=== PATIENT | male | born 1965 | race Caucasian/White ===

== ENCOUNTER 2018-03-26 10:23 | Inpatient (IN) | payer BC ==
[~2018-03-26] VITALS: Ht 180.3 cm; Wt 71.7 kg
[2018-03-26] MEDS ORDERED: IV NORMAL SALINE 1000ML BAG 1,000 ML IV ONE (11:00)
--- NOTE | 2018-03-26 11:07 | PHYS DOC ---
Past Medical History Past Medical History: No Pertinent History Past Surgical History: Other Additional Past Surgical Histo: EYE-R Alcohol Use: None Drug Use: None Adult General Chief Complaint Chief Complaint: ABDOMINAL PAIN HPI HPI Patient is a 53 year old male who presents with 6 out of 10 right upper quadrant abdominal pain. Patient stated this pain has been waxing and waning for the last 2 weeks. He states he thought he was constipated and took over-the- counter remedies. He states his been having small amount of bowel movements intermittently for the last 2 weeks. Patient denies any nausea vomiting. He states his pain is worse when he takes a deep breath. Patient also states he had one episode of vomiting a week ago. Review of Systems Review of Systems Constitutional: Denies fever or chills [] Eyes: Denies change in visual acuity, redness, or eye pain [] HENT: Denies nasal congestion or sore throat [] Respiratory: Denies cough or shortness of breath [] Cardiovascular: No additional information not addressed in HPI [] GI: Reports right upper quadrant abdominal pain, constipation, reports 1 episode of vomiting, denies nausea, bloody stools or diarrhea [] : Denies dysuria or hematuria [] Musculoskeletal: Denies back pain or joint pain [] Integument: Denies rash or skin lesions [] Neurologic: Denies headache, focal weakness or sensory changes [] All other systems were reviewed and found to be within normal limits, except as documented in this note. Current Medications Current Medications Current Medications Medications (Trade) Dose Ordered Sig/Ahrvey Start Time Stop Time Status Last Admin Dose Admin Info (CONTRAST GIVEN -- Rx MONITORING) 1 each PRN DAILY PRN 03/26/18 11:30 03/28/18 11:29 Iohexol (Omnipaque 300 Mg/ml) 75 ml 1X ONCE 03/26/18 11:30 03/26/18 11:31 DC 03/26/18 11:40 75 ML Sodium Chloride 1,000 ml @ 1,000 mls/hr 1X ONCE 03/26/18 11:00 03/26/18 11:59 DC 03/26/18 13:51 1,000 MLS/HR Allergies Allergies Allergies Coded Allergies Type Severity Reaction Last Updated Verified No Known Drug Allergies 03/26/18 No Physical Exam Physical Exam Constitutional: Well developed, well nourished, no acute distress, non-toxic appearance. [] HENT: Normocephalic, atraumatic, bilateral external ears normal, oropharynx moist, no oral exudates, nose normal. [] Eyes: PERRLA, EOMI, conjunctiva normal, no discharge. [] Neck: Normal range of motion, no tenderness, supple, no stridor. [] Cardiovascular:Heart rate regular rhythm, no murmur [] Lungs & Thorax: Bilateral breath sounds clear to auscultation [] Abdomen: Bowel sounds normal, soft, no tenderness, no masses, no pulsatile masses. [] Skin: Warm, dry, no erythema, no rash. [] Back: No tenderness, no CVA tenderness. [] Extremities: No tenderness, no cyanosis, no clubbing, ROM intact, no edema. [] Neurologic: Alert and oriented X 3, normal motor function, normal sensory function, no focal deficits noted. [] Psychologic: Affect normal, judgement normal, mood normal. [] Current Patient Data Vital Signs Vital Signs Date Time Temp Pulse Resp B/P (MAP) Pulse Ox O2 Delivery O2 Flow Rate FiO2 03/26/18 12:00 77 16 168/84 (112) 97 Room Air 03/26/18 10:45 97.9 97.9 Lab Values Laboratory Tests Test 03/26/18 11:05 White Blood Count 6.9 x10^3/uL (4.0-11.0) Red Blood Count 4.90 x10^6/uL (4.30-5.70) Hemoglobin 14.2 g/dL (13.0-17.5) Hematocrit 41.2 % (39.0-53.0) Mean Corpuscular Volume 84 fL (79-100) Mean Corpuscular Hemoglobin 29 pg (25-35) Mean Corpuscular Hemoglobin Concent 34 g/dL (31-37) Red Cell Distribution Width 13.2 % (11.5-14.5) Platelet Count 271 x10^3/uL (140-400) Neutrophils (%) (Auto) 70 % (31-73) Lymphocytes (%) (Auto) 19 % (24-48) L Monocytes (%) (Auto) 8 % (0-9) Eosinophils (%) (Auto) 2 % (0-3) Basophils (%) (Auto) 1 % (0-3) Neutrophils # (Auto) 4.8 x10^3uL (1.8-7.7) Lymphocytes # (Auto) 1.3 x10^3/uL (1.0-4.8) Monocytes # (Auto) 0.6 x10^3/uL (0.0-1.1) Eosinophils # (Auto) 0.2 x10^3/uL (0.0-0.7) Basophils # (Auto) 0.1 x10^3/uL (0.0-0.2) Urine Collection Type Unknown Urine Color Yellow Urine Clarity Clear Urine pH 6.5 Urine Specific [place] 1.025 Urine Protein Negative mg/dL (NEG-TRACE) Urine Glucose (UA) Negative mg/dL (NEG) Urine Ketones (Stick) Negative mg/dL (NEG) Urine Blood Negative (NEG) Urine Nitrite Negative (NEG) Urine Bilirubin Negative (NEG) Urine Urobilinogen Dipstick 0.2 mg/dL (0.2 mg/dL) Urine Leukocyte Esterase Negative (NEG) Urine RBC 0 /HPF (0-2) Urine WBC Occ /HPF (0-4) Urine Squamous Epithelial Cells Few /LPF Urine Bacteria 0 /HPF (0-FEW) Sodium Level 140 mmol/L (136-145) Potassium Level 4.0 mmol/L (3.5-5.1) Chloride Level 101 mmol/L (98-107) Carbon Dioxide Level 32 mmol/L (21-32) Anion Gap 7 (6-14) Blood Urea Nitrogen 20 mg/dL (8-26) Creatinine 0.9 mg/dL (0.7-1.3) Estimated GFR (Cockcroft-Gault) 87.6 BUN/Creatinine Ratio 22 (6-20) H Glucose Level 83 mg/dL (70-99) Calcium Level 9.4 mg/dL (8.5-10.1) Total Bilirubin 0.7 mg/dL (0.2-1.0) Aspartate Amino Transferase (AST) 38 U/L (15-37) H Alanine Aminotransferase (ALT) 44 U/L (16-63) Alkaline Phosphatase 161 U/L (46-116) H Total Protein 7.8 g/dL (6.4-8.2) Albumin 3.7 g/dL (3.4-5.0) Albumin/Globulin Ratio 0.9 (1.0-1.7) L Lipase 97 U/L (73-393) Laboratory Tests 03/26/18 11:05 Laboratory Tests 03/26/18 11:05 EKG EKG [] Radiology/Procedures Radiology/Procedures []PROCEDURE: CT ABD PELV W/ IV CONTRST ONLY Examination: CT ABD PELV W/ IV CONTRST ONLY History: LOW RIGHT ABDOMEN PAIN, CONSTIPATION. IV OMNI 300 75 MLS. NO PREVIOUS Comparison/Correlation: None Findings: Axial images of the abdomen and pelvis were obtained following 75 cc Omnipaque 300. Coronal and sagittal reformatted images were provided. Calcified granulomas are present involving the right lung base. Minimal costophrenic sulcus atelectasis bilaterally is present. At the hepatic dome, there is extensive low-attenuation mass involvement. The dominant mass at this site measures 10.2 cm x 7.8 cm. The next largest lesion is present at the inferior aspect of the right hepatic lobe measuring 6.5 cm x 5 cm. Multiple smaller masses also present involving the liver especially in the right hepatic lobe and to a lesser extent in the left hepatic lobe. Some of the low attenuation lesions present have a density as would be expected of a cyst. Right mid abdominal cystic structure measuring 2.4 cm x 1.9 cm is present with Hounsfield units of 25. Spleen has calcified granulomas. Adrenal glands are normal. Pancreas is unremarkable. Kidneys are normal. Large quantity of stool is present within the colon. Small umbilical hernia containing frontal fat. No inflammatory changes identified about the cecum. Minimal perihepatic ascites. No enlarged abdominal or pelvic lymph nodes. Urinary bladder is unremarkable. Bilateral pars interarticularis fractures are present. Less than grade 1 anterolisthesis of L5 in relation S1 is present with severe disc space narrowing and spurring anteriorly. Exaggerated lordosis of the lumbar spine is evident. Impression: Significant hepatic mass involvement. Findings are of concern for metastatic disease. Correlate for possibility of infectious etiology alternatively. No findings of cirrhosis or other findings to suggest primary liver neoplastic process. Large quantity of stool within the colon. Cystic structure within the right mid abdomen is present and small in size. This may represent a mesenteric cyst. It is of indeterminate etiology. L5 pars interarticularis fracture bilaterally. Electronically signed by: Shayan Weaver MD (03/26/2018 1:26 PM) [id number] DICTATED and SIGNED BY: SHAYAN WEAVER MD DATE: 03/26/18 1221 Course & Med Decision Making Course & Med Decision Making Pertinent Labs and Imaging studies reviewed. (See chart for details) This is a 53-year-old male patient presenting to the ED today with complaints of right upper quadrant abdominal pain. Is also complaining of constipation. Symptoms have been going on and off for 2 weeks. CBC with a normal WBC, CMP with AST of 38. CT of the abdomen and pelvic was noted for significant hepatic mass. Findings are of concern for metastatic disease. Correlate for possibility of infectious etiology alternatively. No findings of cirrhosis or other findings to suggest primary liver neoplastic process. Large quantity of stool within the colon.Cystic structure within the right mid abdomen is present and small in size. This may represent a mesenteric cyst. It is of indeterminate etiology. L5 pars interarticularis fracture bilaterally. 14:[address] Williamson who accepted patient for admission 14:22 :Consulted with Lilliam GAMBOA who will f/u with patient Routine consult placed for neurosurgery for L5 pars interarticularis fracture bilaterally. Dragon Disclaimer Dragon Disclaimer This electronic medical record was generated, in whole or in part, using a voice recognition dictation system. Departure Departure Impression: Primary Impression: Liver mass Additional Impressions: Constipation Fracture of L5 vertebra Disposition: 09 ADMITTED INPATIENT Condition: STABLE Referrals: ZANE PRIDE MD (PCP) Problem Qualifiers Additional Impressions: Constipation Constipation type: unspecified constipation type Qualified Codes: K59.00 - Constipation, unspecified Fracture of L5 vertebra Encounter type: initial encounter Fracture type: closed Fracture morphology : unspecified fracture morphology Qualified Codes: S32.059A - Unspecified fracture of fifth lumbar vertebra, initial encounter for closed fracture CHIKI ARZOLA APRN Mar 26, 2018 11:07
[2018-03-26 11:16] LABS: BASO # 0.1 x10^3/uL (0.0-0.2); BASO % 1 % (0-3); EOS # 0.2 x10^3/uL (0.0-0.7); EOS % 2 % (0-3); HEMATOCRIT 41.2 % (39.0-53.0); HEMOGLOBIN 14.2 g/dL (13.0-17.5); LYMPH # 1.3 x10^3/uL (1.0-4.8); LYMPH % 19 % (24-48); MEAN CORPUSCULAR HEMOGLOBIN 29 pg (25-35); MEAN CORPUSCULAR HGB CONC 34 g/dL (31-37); MEAN CORPUSCULAR VOLUME 84 fL (79-100); MONO # 0.6 x10^3/uL (0.0-1.1); MONO % 8 % (0-9); NEUT # 4.8 x10^3uL (1.8-7.7); NEUT % 70 % (31-73); PLATELET COUNT 271 x10^3/uL (140-400); RED CELL DISTRIBUTION WIDTH 13.2 % (11.5-14.5); WHITE BLOOD COUNT 6.9 x10^3/uL (4.0-11.0)
[2018-03-26 11:17] LABS: BILIRUBIN,URINE NEGATIVE (NEG); CLARITY,URINE CLEAR; COLOR,URINE YELLOW; NITRITE,URINE NEGATIVE (NEG); PH,URINE 6.5; PROTEIN,URINE NEGATIVE (NEG-TRACE); UROBILINOGEN,URINE 0.2 mg/dL (0.2 mg/dL)
[2018-03-26 11:22] LABS: CALCIUM 9.4 mg/dL (8.5-10.1); CREATININE 0.9 mg/dL (0.7-1.3); GFR 87.6
[2018-03-26 11:24] LABS: SQUAMOUS EPITHELIAL CELL,UR FEW /LPF
[2018-03-26 11:28] LABS: ALBUMIN 3.7 g/dL (3.4-5.0); ALBUMIN/GLOBULIN RATIO 0.9 (1.0-1.7); BACTERIA,URINE 0 /HPF (0-FEW); RBC,URINE 0 /HPF (0-2); TOTAL BILIRUBIN 0.7 mg/dL (0.2-1.0); TOTAL PROTEIN 7.8 g/dL (6.4-8.2); WBC,URINE OCC /HPF (0-4)
[2018-03-26] MEDS ORDERED: IOHEXOL 300 MG/ML 100ML VIAL. IV ONE (11:30)
[2018-03-26] MEDS ORDERED: CONTRAST GIVEN. MC PRN (11:30)
--- NOTE | 2018-03-26 13:29 | RAD ---
Examination: CT ABD PELV W/ IV CONTRST ONLY History: LOW RIGHT ABDOMEN PAIN, CONSTIPATION. IV OMNI 300 75 MLS. NO PREVIOUS Comparison/Correlation: None Findings: Axial images of the abdomen and pelvis were obtained following 75 cc Omnipaque 300. Coronal and sagittal reformatted images were provided. Calcified granulomas are present involving the right lung base. Minimal costophrenic sulcus atelectasis bilaterally is present. At the hepatic dome, there is extensive low-attenuation mass involvement. The dominant mass at this site measures 10.2 cm x 7.8 cm. The next largest lesion is present at the inferior aspect of the right hepatic lobe measuring 6.5 cm x 5 cm. Multiple smaller masses also present involving the liver especially in the right hepatic lobe and to a lesser extent in the left hepatic lobe. Some of the low attenuation lesions present have a density as would be expected of a cyst. Right mid abdominal cystic structure measuring 2.4 cm x 1.9 cm is present with Hounsfield units of 25. Spleen has calcified granulomas. Adrenal glands are normal. Pancreas is unremarkable. Kidneys are normal. Large quantity of stool is present within the colon. Small umbilical hernia containing frontal fat. No inflammatory changes identified about the cecum. Minimal perihepatic ascites. No enlarged abdominal or pelvic lymph nodes. Urinary bladder is unremarkable. Bilateral pars interarticularis fractures are present. Less than grade 1 anterolisthesis of L5 in relation S1 is present with severe disc space narrowing and spurring anteriorly. Exaggerated lordosis of the lumbar spine is evident. Impression: Significant hepatic mass involvement. Findings are of concern for metastatic disease. Correlate for possibility of infectious etiology alternatively. No findings of cirrhosis or other findings to suggest primary liver neoplastic process. Large quantity of stool within the colon. Cystic structure within the right mid abdomen is present and small in size. This may represent a mesenteric cyst. It is of indeterminate etiology. L5 pars interarticularis fracture bilaterally. Electronically signed by: Shayan Gerber MD (03/26/2018 1:26 PM) [id number]
[2018-03-26] MEDS ORDERED: ONDANSETRON PF 4 MG/2 ML VIAL. IV PRN (15:15)
[2018-03-26] MEDS ORDERED: MORPHINE SULFATE 4 MG/ML VIAL. IV PRN (15:15)
[2018-03-26 15:20] VITALS: BP 114/87
--- NOTE | 2018-03-26 15:28 | PDOC2 ---
GI CONSULT Reason For Consult: Liver mass HPI: HPI: 53 y/o male seen in ER. On 03/10/18, awoke and vomited once, then noted some right-sided pain above and under ribs. Was bothersome for a couple days, then improved although it "always felt like something was there." Recurred/worsened on 03/24 - dull aching. Went to work (at [employer]) yesterday, noted pain was worse w/ deep breathing and bending/stooping. Then last night had to sleep sitting up because discomfort was too intense when laying on right side. Came to ER for this and constipation. Seems has a long h/o constipation (hard stools , straining) that has been worse since pain began - last stool (hard and small) was yesterday. CT unfortunately showed significant hepatic mass involvement concerning for metastatic disease. Also noted large quantity of stool without in the colon. No n/v (except for one instance of vomiting as mentioned above). Appetite has been good, but has lost weight since 10/2017 - Ashley says she's trying to lose weight and has changed her diet, so he eats more healthy foods as a result , but also snacks and eats lots of sweets. No reflux/heartburn or dysphagia. Typically no issues w/ abd pain. No diarrhea, hematemesis, or melena. For years, has noted red blood swirling around stool in toilet, probably occurs once weekly. No previous EGD or colonoscopy. No GB, liver, or pancreas history he's aware of. Last physical was about 9 years ago. Takes as ASA occasionally and a multi-vitamin. No h/o hepatitis (or risk factors for this). PMH: PMH: ?HLD, right cataract removal FH: Family History: Other (parents killed in MVA when he was 11) Social History: Smoke: No ALCOHOL: none Drugs: None ROS: GEN: Denies fevers, chills, sweats HEENT: Denies blurred vision, sore throat CV: Denies chest pain RESP: Denies shortness of air, cough GI: Per HPI : Denies hematuria, dysuria ENDO: +weight loss NEURO: Denies confusion, dizziness MSK: Denies weakness, joint pain/swelling SKIN: Denies jaundice, pruritus Vitals: Vitals: Vital Signs Date Time Temp Pulse Resp B/P (MAP) Pulse Ox O2 Delivery O2 Flow Rate FiO2 03/26/18 15:07 72 16 170/90 (116) 97 Room Air 03/26/18 10:45 97.9 97.9 Labs: Labs: Laboratory Tests Test 03/26/18 11:05 White Blood Count 6.9 x10^3/uL (4.0-11.0) Red Blood Count 4.90 x10^6/uL (4.30-5.70) Hemoglobin 14.2 g/dL (13.0-17.5) Hematocrit 41.2 % (39.0-53.0) Mean Corpuscular Volume 84 fL (79-100) Mean Corpuscular Hemoglobin 29 pg (25-35) Mean Corpuscular Hemoglobin Concent 34 g/dL (31-37) Red Cell Distribution Width 13.2 % (11.5-14.5) Platelet Count 271 x10^3/uL (140-400) Neutrophils (%) (Auto) 70 % (31-73) Lymphocytes (%) (Auto) 19 % (24-48) Monocytes (%) (Auto) 8 % (0-9) Eosinophils (%) (Auto) 2 % (0-3) Basophils (%) (Auto) 1 % (0-3) Neutrophils # (Auto) 4.8 x10^3uL (1.8-7.7) Lymphocytes # (Auto) 1.3 x10^3/uL (1.0-4.8) Monocytes # (Auto) 0.6 x10^3/uL (0.0-1.1) Eosinophils # (Auto) 0.2 x10^3/uL (0.0-0.7) Basophils # (Auto) 0.1 x10^3/uL (0.0-0.2) Urine Collection Type Unknown Urine Color Yellow Urine Clarity Clear Urine pH 6.5 Urine Specific [place] 1.025 Urine Protein Negative mg/dL (NEG-TRACE) Urine Glucose (UA) Negative mg/dL (NEG) Urine Ketones (Stick) Negative mg/dL (NEG) Urine Blood Negative (NEG) Urine Nitrite Negative (NEG) Urine Bilirubin Negative (NEG) Urine Urobilinogen Dipstick 0.2 mg/dL (0.2 mg/dL) Urine Leukocyte Esterase Negative (NEG) Urine RBC 0 /HPF (0-2) Urine WBC Occ /HPF (0-4) Urine Squamous Epithelial Cells Few /LPF Urine Bacteria 0 /HPF (0-FEW) Sodium Level 140 mmol/L (136-145) Potassium Level 4.0 mmol/L (3.5-5.1) Chloride Level 101 mmol/L (98-107) Carbon Dioxide Level 32 mmol/L (21-32) Anion Gap 7 (6-14) Blood Urea Nitrogen 20 mg/dL (8-26) Creatinine 0.9 mg/dL (0.7-1.3) Estimated GFR (Cockcroft-Gault) 87.6 BUN/Creatinine Ratio 22 (6-20) Glucose Level 83 mg/dL (70-99) Calcium Level 9.4 mg/dL (8.5-10.1) Total Bilirubin 0.7 mg/dL (0.2-1.0) Aspartate Amino Transf (AST/SGOT) 38 U/L (15-37) Alanine Aminotransferase (ALT/SGPT) 44 U/L (16-63) Alkaline Phosphatase 161 U/L (46-116) Total Protein 7.8 g/dL (6.4-8.2) Albumin 3.7 g/dL (3.4-5.0) Albumin/Globulin Ratio 0.9 (1.0-1.7) Lipase 97 U/L (73-393) Allergies: Coded Allergies: No Known Drug Allergies (Unverified , 03/26/18) Medications: Current Medications Medications (Trade) Dose Ordered Sig/Harvey Route PRN Reason Start Time Stop Time Status Last Admin Dose Admin Sodium Chloride 1,000 ml @ 1,000 mls/hr 1X ONCE IV 03/26/18 11:00 03/26/18 11:59 DC 03/26/18 13:51 Iohexol (Omnipaque 300 Mg/ml) 75 ml 1X ONCE IV 03/26/18 11:30 03/26/18 11:31 DC 03/26/18 11:40 Imaging: Imaging: CT A/P w/ IV contrast Impression: Significant hepatic mass involvement. Findings are of concern for metastatic disease. Correlate for possibility of infectious etiology alternatively. No findings of cirrhosis or other findings to suggest primary liver neoplastic process. Large quantity of stool within the colon. Cystic structure within the right mid abdomen is present and small in size. This may represent a mesenteric cyst. It is of indeterminate etiology. L5 pars interarticularis fracture bilaterally. PE: GEN: NAD HEENT: Atraumatic, PERRL LUNGS: CTAB HEART: RRR ABD: firmness RUQ, some discomfort over right ribs, BS+ EXTREMITY: No edema SKIN: No rashes, no jaundice NEURO/PSYCH: A & O 3 A/P: A/P: RUQ discomfort Chronic constipation - worse x [address] - hepatic mass Weight loss Blood in stools - for years CRC screen - none -- Concern for malignancy. Will ask for liver biopsy w/ IR. Try Dulcolax/Miralax for constipation. Okay to eat per GI. MATT HOOVER Mar 26, 2018 15:28
[2018-03-26] MEDS ORDERED: BISACODYL 5 MG TABLET.DR. PO ONE (16:00)
[2018-03-26 16:12] LABS: PROTHROMBIN TIME PATIENT 13.9 SEC (11.7-14.0)
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
[2018-03-26] MEDS ORDERED: DOCUSATE SODIUM 100 MG CAPSULE. PO PRN (16:45)
[2018-03-26] MEDS: DOCUSATE SODIUM 100 MG CAPSULE. PO SCH ×2 (16:51→22:45)
[2018-03-26 19:00] VITALS: BP 123/74
[2018-03-26] MEDS: POLYETHYLENE GLYCOL 3350 17 GM PACKET. PO SCH (22:45)
[2018-03-26 23:00] VITALS: BP 123/75
[2018-03-27] VITALS (14 sets, daily range): BP systolic 109–137; BP diastolic 58–87
[2018-03-27 03:13] LABS: BASO # 0.1 x10^3/uL (0.0-0.2); BASO % 1 % (0-3); EOS # 0.3 x10^3/uL (0.0-0.7); EOS % 4 % (0-3); HEMATOCRIT 39.5 % (39.0-53.0); HEMOGLOBIN 13.5 g/dL (13.0-17.5); LYMPH # 1.5 x10^3/uL (1.0-4.8); LYMPH % 23 % (24-48); MEAN CORPUSCULAR HEMOGLOBIN 29 pg (25-35); MEAN CORPUSCULAR HGB CONC 34 g/dL (31-37); MEAN CORPUSCULAR VOLUME 84 fL (79-100); MONO # 0.8 x10^3/uL (0.0-1.1); MONO % 12 % (0-9); NEUT # 3.9 x10^3uL (1.8-7.7); NEUT % 60 % (31-73); PLATELET COUNT 249 x10^3/uL (140-400); RED BLOOD COUNT 4.68 x10^6/uL (4.30-5.70); RED CELL DISTRIBUTION WIDTH 13.1 % (11.5-14.5); WHITE BLOOD COUNT 6.5 x10^3/uL (4.0-11.0)
[2018-03-27 03:33] LABS: CALCIUM 8.4 mg/dL (8.5-10.1); CREATININE 0.9 mg/dL (0.7-1.3); GFR 87.6; POTASSIUM 4.2 mmol/L (3.5-5.1)
--- NOTE | 2018-03-27 08:07 | RAD ---
Right upper quadrant abdominal ultrasound, 03/26/2018: HISTORY: Abnormal liver on CT The gallbladder is not well distended. It is folded over upon itself. Its jane are mildly thickened. There are several nodular foci along its jane without posterior acoustic shadowing. The appearance suggests gallbladder polyps. The common hepatic duct is of normal caliber. The liver is abnormal. There is a large heterogeneous solid mass in the right lobe demonstrating mixed hyperechoic and mildly hypoechoic components. This process measures at least 11-12 cm in diameter. A neoplastic etiology is likely. There are multiple small smooth cysts in both lobes. The pancreas is unremarkable. The visualized portions of the right kidney show no abnormality. IMPRESSION: 1. Large heterogeneous solid mass in the right lobe of the liver suggesting a primary hepatic neoplasm versus metastatic disease. 2. Multiple additional small scattered hepatic lesion seen on the CT study are predominantly cysts. Coexisting small metastases cannot be excluded. 3. Poorly distended gallbladder demonstrating mild mural thickening and probable small polyps. Electronically signed by: Joesph Madrigal MD (03/27/2018 8:03 AM) [facility]
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
[2018-03-27] MEDS ORDERED: LIDOCAINE WITH 8.4% SOD BICARB 3 ML DISP.SYRIN. ONE (10:04)
[2018-03-27] MEDS ORDERED: GELATIN SPONGE SIZE 12-7MM SPONGE. ONE (10:04)
[2018-03-27] MEDS ORDERED: MIDAZOLAM HCL/PF 2 MG/2 ML VIAL. ONE (10:10)
[2018-03-27] MEDS ORDERED: fentaNYL PF VIAL 100 MCG/2 ML VIAL ONE (10:10)
[2018-03-27] MEDS ORDERED: MIDAZOLAM HCL/PF 2 MG/2 ML VIAL. IV ONE (10:30)
[2018-03-27] MEDS ORDERED: fentaNYL PF VIAL 100 MCG/2 ML VIAL IV ONE (10:30)
[2018-03-27] MEDS ORDERED: LIDOCAINE WITH 8.4% SOD BICARB 3 ML DISP.SYRIN. IJ ONE (10:30)
--- NOTE | 2018-03-27 11:20 | PDOC ---
Subjective: Subjective: Just back from liver biopsy, doing okay. Objective: Objective: 3 stools charted. Vital Signs: Vital Signs Date Time Temp Pulse Resp B/P (MAP) Pulse Ox O2 Delivery O2 Flow Rate FiO2 03/27/18 11:07 Room Air 03/27/18 11:00 98.1 74 18 120/69 (86) 96 98.1 03/27/18 10:48 2.0 Labs: Laboratory Tests Test 03/27/18 02:50 White Blood Count 6.5 x10^3/uL Red Blood Count 4.68 x10^6/uL Hemoglobin 13.5 g/dL Hematocrit 39.5 % Mean Corpuscular Volume 84 fL Mean Corpuscular Hemoglobin 29 pg Mean Corpuscular Hemoglobin Concent 34 g/dL Red Cell Distribution Width 13.1 % Platelet Count 249 x10^3/uL Neutrophils (%) (Auto) 60 % Lymphocytes (%) (Auto) 23 % Monocytes (%) (Auto) 12 % Eosinophils (%) (Auto) 4 % Basophils (%) (Auto) 1 % Neutrophils # (Auto) 3.9 x10^3uL Lymphocytes # (Auto) 1.5 x10^3/uL Monocytes # (Auto) 0.8 x10^3/uL Eosinophils # (Auto) 0.3 x10^3/uL Basophils # (Auto) 0.1 x10^3/uL Sodium Level 144 mmol/L Potassium Level 4.2 mmol/L Chloride Level 106 mmol/L Carbon Dioxide Level 30 mmol/L Anion Gap 8 Blood Urea Nitrogen 13 mg/dL Creatinine 0.9 mg/dL Estimated GFR (Cockcroft-Gault) 87.6 Glucose Level 90 mg/dL Calcium Level 8.4 mg/dL Imaging: Abd US 03/26/18 IMPRESSION: 1. Large heterogeneous solid mass in the right lobe of the liver suggesting a primary hepatic neoplasm versus metastatic disease. 2. Multiple additional small scattered hepatic lesion seen on the CT study are predominantly cysts. Coexisting small metastases cannot be excluded. 3. Poorly distended gallbladder demonstrating mild mural thickening and probable small polyps PE: GEN: NAD LUNGS: CTAB HEART: RRR ABD: soft NEURO/PSYCH: A & O 3 A/P: Hepatic mass - now s/p liver biopsy 03/27/18 -oncology following, AFP pending -- Await biopsy results. MATT HOOVER Mar 27, 2018 11:20
[2018-03-27] MEDS ORDERED: POLY17PO3 PO (11:48)
[2018-03-27] MEDS ORDERED: DOCU-109 PO (11:48)
--- NOTE | 2018-03-27 11:51 | PDOC3 ---
Discharge Summary Visit Information Date of Admission: Mar 26, 2018 Date of Discharge: Mar 28, 2018 Admitting Diagnosis: abd pain Final Diagnosis multiple hepatic masses abd pain constipation L5 compression fracture blood in stool Problems Medical Problems: (1) Constipation Status: Acute (2) Fracture of L5 vertebra Status: Acute Brief Hospital Course Allergies Allergies Coded Allergies Type Severity Reaction Last Updated Verified No Known Drug Allergies 03/26/18 No Vital Signs Vital Signs Date Time Temp Pulse Resp B/P (MAP) Pulse Ox O2 Delivery O2 Flow Rate FiO2 03/27/18 11:07 Room Air 03/27/18 11:00 98.1 74 18 120/69 (86) 96 98.1 03/27/18 10:48 2.0 Lab Results Laboratory Tests Test 03/26/18 11:05 03/27/18 02:50 White Blood Count 6.9 x10^3/uL (4.0-11.0) 6.5 x10^3/uL (4.0-11.0) Red Blood Count 4.90 x10^6/uL (4.30-5.70) 4.68 x10^6/uL (4.30-5.70) Hemoglobin 14.2 g/dL (13.0-17.5) 13.5 g/dL (13.0-17.5) Hematocrit 41.2 % (39.0-53.0) 39.5 % (39.0-53.0) Mean Corpuscular Volume 84 fL (79-100) 84 fL (79-100) Mean Corpuscular Hemoglobin 29 pg (25-35) 29 pg (25-35) Mean Corpuscular Hemoglobin Concent 34 g/dL (31-37) 34 g/dL (31-37) Red Cell Distribution Width 13.2 % (11.5-14.5) 13.1 % (11.5-14.5) Platelet Count 271 x10^3/uL (140-400) 249 x10^3/uL (140-400) Neutrophils (%) (Auto) 70 % (31-73) 60 % (31-73) Lymphocytes (%) (Auto) 19 % (24-48) 23 % (24-48) Monocytes (%) (Auto) 8 % (0-9) 12 % (0-9) Eosinophils (%) (Auto) 2 % (0-3) 4 % (0-3) Basophils (%) (Auto) 1 % (0-3) 1 % (0-3) Neutrophils # (Auto) 4.8 x10^3uL (1.8-7.7) 3.9 x10^3uL (1.8-7.7) Lymphocytes # (Auto) 1.3 x10^3/uL (1.0-4.8) 1.5 x10^3/uL (1.0-4.8) Monocytes # (Auto) 0.6 x10^3/uL (0.0-1.1) 0.8 x10^3/uL (0.0-1.1) Eosinophils # (Auto) 0.2 x10^3/uL (0.0-0.7) 0.3 x10^3/uL (0.0-0.7) Basophils # (Auto) 0.1 x10^3/uL (0.0-0.2) 0.1 x10^3/uL (0.0-0.2) Prothrombin Time 13.9 SEC (11.7-14.0) Prothromb Time International Ratio 1.1 (0.8-1.1) Urine Collection Type Unknown Urine Color Yellow Urine Clarity Clear Urine pH 6.5 Urine Specific [place] 1.025 Urine Protein Negative mg/dL (NEG-TRACE) Urine Glucose (UA) Negative mg/dL (NEG) Urine Ketones (Stick) Negative mg/dL (NEG) Urine Blood Negative (NEG) Urine Nitrite Negative (NEG) Urine Bilirubin Negative (NEG) Urine Urobilinogen Dipstick 0.2 mg/dL (0.2 mg/dL) Urine Leukocyte Esterase Negative (NEG) Urine RBC 0 /HPF (0-2) Urine WBC Occ /HPF (0-4) Urine Squamous Epithelial Cells Few /LPF Urine Bacteria 0 /HPF (0-FEW) Sodium Level 140 mmol/L (136-145) 144 mmol/L (136-145) Potassium Level 4.0 mmol/L (3.5-5.1) 4.2 mmol/L (3.5-5.1) Chloride Level 101 mmol/L (98-107) 106 mmol/L (98-107) Carbon Dioxide Level 32 mmol/L (21-32) 30 mmol/L (21-32) Anion Gap 7 (6-14) 8 (6-14) Blood Urea Nitrogen 20 mg/dL (8-26) 13 mg/dL (8-26) Creatinine 0.9 mg/dL (0.7-1.3) 0.9 mg/dL (0.7-1.3) Estimated GFR (Cockcroft-Gault) 87.6 87.6 BUN/Creatinine Ratio 22 (6-20) Glucose Level 83 mg/dL (70-99) 90 mg/dL (70-99) Calcium Level 9.4 mg/dL (8.5-10.1) 8.4 mg/dL (8.5-10.1) Total Bilirubin 0.7 mg/dL (0.2-1.0) Aspartate Amino Transf (AST/SGOT) 38 U/L (15-37) Alanine Aminotransferase (ALT/SGPT) 44 U/L (16-63) Alkaline Phosphatase 161 U/L (46-116) Total Protein 7.8 g/dL (6.4-8.2) Albumin 3.7 g/dL (3.4-5.0) Albumin/Globulin Ratio 0.9 (1.0-1.7) Lipase 97 U/L (73-393) Laboratory Tests Test 03/27/18 02:50 White Blood Count 6.5 x10^3/uL (4.0-11.0) Red Blood Count 4.68 x10^6/uL (4.30-5.70) Hemoglobin 13.5 g/dL (13.0-17.5) Hematocrit 39.5 % (39.0-53.0) Mean Corpuscular Volume 84 fL (79-100) Mean Corpuscular Hemoglobin 29 pg (25-35) Mean Corpuscular Hemoglobin Concent 34 g/dL (31-37) Red Cell Distribution Width 13.1 % (11.5-14.5) Platelet Count 249 x10^3/uL (140-400) Neutrophils (%) (Auto) 60 % (31-73) Lymphocytes (%) (Auto) 23 % (24-48) Monocytes (%) (Auto) 12 % (0-9) Eosinophils (%) (Auto) 4 % (0-3) Basophils (%) (Auto) 1 % (0-3) Neutrophils # (Auto) 3.9 x10^3uL (1.8-7.7) Lymphocytes # (Auto) 1.5 x10^3/uL (1.0-4.8) Monocytes # (Auto) 0.8 x10^3/uL (0.0-1.1) Eosinophils # (Auto) 0.3 x10^3/uL (0.0-0.7) Basophils # (Auto) 0.1 x10^3/uL (0.0-0.2) Sodium Level 144 mmol/L (136-145) Potassium Level 4.2 mmol/L (3.5-5.1) Chloride Level 106 mmol/L (98-107) Carbon Dioxide Level 30 mmol/L (21-32) Anion Gap 8 (6-14) Blood Urea Nitrogen 13 mg/dL (8-26) Creatinine 0.9 mg/dL (0.7-1.3) Estimated GFR (Cockcroft-Gault) 87.6 Glucose Level 90 mg/dL (70-99) Calcium Level 8.4 mg/dL (8.5-10.1) Brief Hospital Course Mr. Sood is a 53 old male, abd pain, CT showed liver masses, biopsy taken 10.2, Dr. Sawant from Oncology will follow, GI consulted, may need colonoscopy outpatient, long hx of blood in stool Discharge Information Condition at Discharge: Improved Follow Up: Weeks Disposition/Orders: D/C to Home Scheduled Docusate Sodium (Colace) 100 Mg Capsule, 100 MG PO DAILY, #60 Prescribed by: PHANI ANDREW on 03/27/18 1148 Polyethylene Glycol 3350 (Polyethylene Glycol 3350) 17 Gm Powd.pack, 17 GM PO DAILY, #30 Prescribed by: PHANI ANDREW on 03/27/18 1148 Miscellaneous Medications Info (No Known Medications Prior To Admisstion) Each, 1 EACH MC, (Reported) Entered as Reported by: TIKA CLINE on 03/26/181609 Last Action: New Order on 03/26/181609 by TIKA CLINE Patient Instructions Patient Instructions > 30 min face to face PHANI ANDREW MD Mar 27, 2018 11:51
--- NOTE | 2018-03-27 12:29 | PDOC ---
PROGRESS NOTES Chief Complaint Chief Complaint acute abdominal pain Hepatic masses, new - now s/p liver biopsy 03/27/18 constipation History of Present Illness History of Present Illness GI and onc following f/u path results from biopsy, pain OK reg diet plan DC in AM Vitals Vitals Vital Signs Date Time Temp Pulse Resp B/P (MAP) Pulse Ox O2 Delivery O2 Flow Rate FiO2 03/27/18 11:07 Room Air 03/27/18 11:00 98.1 74 18 120/69 (86) 96 98.1 03/27/18 10:48 2.0 Physical Exam General: Alert, Oriented X3, Cooperative, No acute distress Heart: Regular rate Lungs: Clear Abdomen: Normal bowel sounds, Soft Extremities: No cyanosis, No edema, Normal pulses Skin: No rashes, No significant lesion Labs LABS Laboratory Tests Test 03/27/18 02:50 White Blood Count 6.5 x10^3/uL (4.0-11.0) Red Blood Count 4.68 x10^6/uL (4.30-5.70) Hemoglobin 13.5 g/dL (13.0-17.5) Hematocrit 39.5 % (39.0-53.0) Mean Corpuscular Volume 84 fL (79-100) Mean Corpuscular Hemoglobin 29 pg (25-35) Mean Corpuscular Hemoglobin Concent 34 g/dL (31-37) Red Cell Distribution Width 13.1 % (11.5-14.5) Platelet Count 249 x10^3/uL (140-400) Neutrophils (%) (Auto) 60 % (31-73) Lymphocytes (%) (Auto) 23 % (24-48) Monocytes (%) (Auto) 12 % (0-9) Eosinophils (%) (Auto) 4 % (0-3) Basophils (%) (Auto) 1 % (0-3) Neutrophils # (Auto) 3.9 x10^3uL (1.8-7.7) Lymphocytes # (Auto) 1.5 x10^3/uL (1.0-4.8) Monocytes # (Auto) 0.8 x10^3/uL (0.0-1.1) Eosinophils # (Auto) 0.3 x10^3/uL (0.0-0.7) Basophils # (Auto) 0.1 x10^3/uL (0.0-0.2) Sodium Level 144 mmol/L (136-145) Potassium Level 4.2 mmol/L (3.5-5.1) Chloride Level 106 mmol/L (98-107) Carbon Dioxide Level 30 mmol/L (21-32) Anion Gap 8 (6-14) Blood Urea Nitrogen 13 mg/dL (8-26) Creatinine 0.9 mg/dL (0.7-1.3) Estimated GFR (Cockcroft-Gault) 87.6 Glucose Level 90 mg/dL (70-99) Calcium Level 8.4 mg/dL (8.5-10.1) Assessment and Plan Assessmemt and Plan Problems Medical Problems: (1) Constipation Status: Acute (2) Fracture of L5 vertebra Status: Acute Comment Review of Relevant I have reviewed the following items grayson (where applicable) has been applied. Labs Laboratory Tests Test 03/26/18 11:05 03/27/18 02:50 White Blood Count 6.9 x10^3/uL (4.0-11.0) 6.5 x10^3/uL (4.0-11.0) Red Blood Count 4.90 x10^6/uL (4.30-5.70) 4.68 x10^6/uL (4.30-5.70) Hemoglobin 14.2 g/dL (13.0-17.5) 13.5 g/dL (13.0-17.5) Hematocrit 41.2 % (39.0-53.0) 39.5 % (39.0-53.0) Mean Corpuscular Volume 84 fL (79-100) 84 fL (79-100) Mean Corpuscular Hemoglobin 29 pg (25-35) 29 pg (25-35) Mean Corpuscular Hemoglobin Concent 34 g/dL (31-37) 34 g/dL (31-37) Red Cell Distribution Width 13.2 % (11.5-14.5) 13.1 % (11.5-14.5) Platelet Count 271 x10^3/uL (140-400) 249 x10^3/uL (140-400) Neutrophils (%) (Auto) 70 % (31-73) 60 % (31-73) Lymphocytes (%) (Auto) 19 % (24-48) 23 % (24-48) Monocytes (%) (Auto) 8 % (0-9) 12 % (0-9) Eosinophils (%) (Auto) 2 % (0-3) 4 % (0-3) Basophils (%) (Auto) 1 % (0-3) 1 % (0-3) Neutrophils # (Auto) 4.8 x10^3uL (1.8-7.7) 3.9 x10^3uL (1.8-7.7) Lymphocytes # (Auto) 1.3 x10^3/uL (1.0-4.8) 1.5 x10^3/uL (1.0-4.8) Monocytes # (Auto) 0.6 x10^3/uL (0.0-1.1) 0.8 x10^3/uL (0.0-1.1) Eosinophils # (Auto) 0.2 x10^3/uL (0.0-0.7) 0.3 x10^3/uL (0.0-0.7) Basophils # (Auto) 0.1 x10^3/uL (0.0-0.2) 0.1 x10^3/uL (0.0-0.2) Prothrombin Time 13.9 SEC (11.7-14.0) Prothromb Time International Ratio 1.1 (0.8-1.1) Urine Collection Type Unknown Urine Color Yellow Urine Clarity Clear Urine pH 6.5 Urine Specific [place] 1.025 Urine Protein Negative mg/dL (NEG-TRACE) Urine Glucose (UA) Negative mg/dL (NEG) Urine Ketones (Stick) Negative mg/dL (NEG) Urine Blood Negative (NEG) Urine Nitrite Negative (NEG) Urine Bilirubin Negative (NEG) Urine Urobilinogen Dipstick 0.2 mg/dL (0.2 mg/dL) Urine Leukocyte Esterase Negative (NEG) Urine RBC 0 /HPF (0-2) Urine WBC Occ /HPF (0-4) Urine Squamous Epithelial Cells Few /LPF Urine Bacteria 0 /HPF (0-FEW) Sodium Level 140 mmol/L (136-145) 144 mmol/L (136-145) Potassium Level 4.0 mmol/L (3.5-5.1) 4.2 mmol/L (3.5-5.1) Chloride Level 101 mmol/L (98-107) 106 mmol/L (98-107) Carbon Dioxide Level 32 mmol/L (21-32) 30 mmol/L (21-32) Anion Gap 7 (6-14) 8 (6-14) Blood Urea Nitrogen 20 mg/dL (8-26) 13 mg/dL (8-26) Creatinine 0.9 mg/dL (0.7-1.3) 0.9 mg/dL (0.7-1.3) Estimated GFR (Cockcroft-Gault) 87.6 87.6 BUN/Creatinine Ratio 22 (6-20) Glucose Level 83 mg/dL (70-99) 90 mg/dL (70-99) Calcium Level 9.4 mg/dL (8.5-10.1) 8.4 mg/dL (8.5-10.1) Total Bilirubin 0.7 mg/dL (0.2-1.0) Aspartate Amino Transf (AST/SGOT) 38 U/L (15-37) Alanine Aminotransferase (ALT/SGPT) 44 U/L (16-63) Alkaline Phosphatase 161 U/L (46-116) Total Protein 7.8 g/dL (6.4-8.2) Albumin 3.7 g/dL (3.4-5.0) Albumin/Globulin Ratio 0.9 (1.0-1.7) Lipase 97 U/L (73-393) Laboratory Tests Test 03/27/18 02:50 White Blood Count 6.5 x10^3/uL (4.0-11.0) Red Blood Count 4.68 x10^6/uL (4.30-5.70) Hemoglobin 13.5 g/dL (13.0-17.5) Hematocrit 39.5 % (39.0-53.0) Mean Corpuscular Volume 84 fL (79-100) Mean Corpuscular Hemoglobin 29 pg (25-35) Mean Corpuscular Hemoglobin Concent 34 g/dL (31-37) Red Cell Distribution Width 13.1 % (11.5-14.5) Platelet Count 249 x10^3/uL (140-400) Neutrophils (%) (Auto) 60 % (31-73) Lymphocytes (%) (Auto) 23 % (24-48) Monocytes (%) (Auto) 12 % (0-9) Eosinophils (%) (Auto) 4 % (0-3) Basophils (%) (Auto) 1 % (0-3) Neutrophils # (Auto) 3.9 x10^3uL (1.8-7.7) Lymphocytes # (Auto) 1.5 x10^3/uL (1.0-4.8) Monocytes # (Auto) 0.8 x10^3/uL (0.0-1.1) Eosinophils # (Auto) 0.3 x10^3/uL (0.0-0.7) Basophils # (Auto) 0.1 x10^3/uL (0.0-0.2) Sodium Level 144 mmol/L (136-145) Potassium Level 4.2 mmol/L (3.5-5.1) Chloride Level 106 mmol/L (98-107) Carbon Dioxide Level 30 mmol/L (21-32) Anion Gap 8 (6-14) Blood Urea Nitrogen 13 mg/dL (8-26) Creatinine 0.9 mg/dL (0.7-1.3) Estimated GFR (Cockcroft-Gault) 87.6 Glucose Level 90 mg/dL (70-99) Calcium Level 8.4 mg/dL (8.5-10.1) Medications Current Medications Sodium Chloride 1,000 ml @ 1,000 mls/hr 1X ONCE IV Last administered on at 13:51; Start 03/26/18 at 11:00; Stop 03/26/18 at 11:59; Status DC Iohexol (Omnipaque 300 Mg/ml) 75 ml 1X ONCE IV Last administered on 03/26/18at 11:40; Start 03/26/18 at 11:30; Stop 03/26/18 at 11:31; Status DC Info (CONTRAST GIVEN -- Rx MONITORING) 1 each PRN DAILY PRN MC SEE COMMENTS; Start 03/26/18 at 11:30; Stop 03/28/18 at 11:29 Ondansetron HCl (Zofran) 4 mg PRN Q8HRS PRN IV NAUSEA/VOMITING; Start 03/26/18 at 15:15; Stop 03/27/18 at 15:14 Morphine Sulfate (Morphine Sulfate) 4 mg PRN Q2HR PRN IV PAIN; Start 03/26/18 at 15:15; Stop 03/27/18 at 15:14 Bisacodyl (Dulcolax Tab) 10 mg 1X ONCE PO ; Start 03/26/18 at 16:00; Stop 03/26 at 16:01; Status DC Polyethylene Glycol (miraLAX PACKET) 17 gm DAILY PO ; Start 03/27/18 at 09:00 Docusate Sodium (Colace) 100 mg PRN DAILY PRN PO CONSTIPATION; Start 03/26/18 at 16:45 Docusate Sodium (Colace) 100 mg DAILY PO ; Start 03/26/18 at 17:00 Lidocaine/Sodium Bicarbonate (Buffered Lidocaine 1%) 3 ml STK-MED ONCE .ROUTE ; Start 03/27/18 at 10:04; Stop 03/27/18 at 10:05; Status DC Gelatin (Gelfoam Size 12-7mm) 1 each STK-MED ONCE .ROUTE ; Start 03/27/18 at 10 :04; Stop 03/27/18 at 10:05; Status DC Midazolam HCl (Versed) 2 mg STK-MED ONCE .ROUTE ; Start 03/27/18 at 10:10; Stop 03/27/18 at 10:11; Status DC Fentanyl Citrate (Fentanyl 2ml Vial) 100 mcg STK-MED ONCE .ROUTE ; Start at 10:10; Stop 03/27/18 at 10:12; Status DC Lidocaine/Sodium Bicarbonate (Buffered Lidocaine 1%) 3 ml 1X ONCE IJ Last administered on 03/27/18at 10:30; Start 03/27/18 at 10:30; Stop 03/27/18 at 10:31 ; Status DC Midazolam HCl (Versed) 2 mg 1X ONCE IV Last administered on 03/27/18at 10:30; Start 03/27/18 at 10:30; Stop 03/27/18 at 10:31; Status DC Fentanyl Citrate (Fentanyl 2ml Vial) 100 mcg 1X ONCE IV Last administered on 03/27/18at 10:30; Start 03/27/18 at 10:30; Stop 03/27/18 at 10:31; Status DC Active Scripts Active Polyethylene Glycol 3350 17 Gm Powd.pack 17 Gm PO DAILY Colace (Docusate Sodium) 100 Mg Capsule 100 Mg PO DAILY Reported No Known Medications Prior To Admisstion (Info) Each 1 Each Vitals/I & O Vital Sign - Last 24 Hours 03/26/18 03/26/18 03/26/18 03/26/18 15:07 15:15 15:20 19:00 Temp 97.5 98.5 97.5 98.5 Pulse 72 70 92 Resp 16 18 18 B/P (MAP) 170/90 (116) 114/87 (96) 123/74 (90) Pulse Ox 97 97 95 O2 Delivery Room Air Room Air 03/26/18 03/26/18 03/27/18 03/27/18 20:00 23:00 03:00 07:00 Temp 98.4 98.6 98.7 98.4 98.6 98.7 Pulse 81 37 94 Resp 18 18 18 B/P (MAP) 123/75 (91) 132/79 (96) 122/67 (85) Pulse Ox 95 96 96 O2 Delivery Room Air Room Air 03/27/18 03/27/18 03/27/18 03/27/18 07:10 10:30 10:31 10:34 Pulse 62 66 Resp 17 14 14 B/P (MAP) 122/70 (87) Pulse Ox 100 100 O2 Delivery Room Air Nasal Cannula Nasal Cannula O2 Flow Rate 2.0 2.0 03/27/18 03/27/18 03/27/18 03/27/18 10:39 10:44 10:48 11:00 Temp 98.1 98.1 Pulse 65 67 68 74 Resp 14 14 19 18 B/P (MAP) 123/70 (87) 124/72 (89) 120/69 (86) Pulse Ox 99 98 100 96 O2 Delivery Nasal Cannula Nasal Cannula Nasal Cannula Room Air O2 Flow Rate 2.0 2.0 2.0 03/27/18 11:07 O2 Delivery Room Air Intake and Output 03/26/18 03/26/18 03/27/18 15:00 23:00 07:00 Intake Total 0 ml Balance 0 ml PHANI ANDREW MD Mar 27, 2018 12:29
--- NOTE | 2018-03-27 13:59 | RAD ---
Ultrasound-guided biopsy, right hepatic mass 03/27/2018 Indication: Multiple right hepatic masses. Unknown primary cancer. History of GI bleeding. Discussion: The risks and benefits of the procedure were discussed the patient. Informed consent was obtained. A timeout procedure was performed. The right upper abdomen was prepped and draped using sterile barrier technique. Ultrasound evaluation demonstrated a heterogenous lesions in the right hepatic lobe similar to prior ultrasound CT findings. The lesion in the right hepatic lobe was targeted for biopsy. 1% lidocaine without epinephrine was administered for local anesthesia to the skin and subcutaneous tissues. Under direct ultrasound guidance a 17-gauge needles advanced into the area in question. Multiple 18-gauge core biopsy samples were obtained. Gelfoam embolization of the biopsy tract was performed as a guiding needle was removed. Manual pressure was held. Repeat ultrasound demonstrates expected postbiopsy changes. No significant hematoma or hemorrhage was identified. The patient tolerated the procedure well and remained hemodynamically stable throughout. The procedure was under conscious sedation including continuous cardiopulmonary monitoring via a dedicated sedation nurse. [id number] sedation time: 30 minutes. Impression: Ultrasound-guided biopsy, right hepatic mass
[2018-03-28 03:15] VITALS: BP 114/76
[2018-03-28 07:00] VITALS: BP 121/73
[2018-03-28] MEDS: POLYETHYLENE GLYCOL 3350 17 GM PACKET. PO SCH (07:24)
[2018-03-28] MEDS: DOCUSATE SODIUM 100 MG CAPSULE. PO SCH (07:24)
--- NOTE | 2018-03-28 08:42 | PDOC ---
SUBJECTIVE Subjective S: Doing well, ready for discharge today O: Physical exam: Gen.: Well-nourished and well-developed, resting in bed Lungs: Breathing comfortably with no evidence of respiratory distress Psychiatric: Pleasant mood and affect Rads: Liver biopsy done 27 March us w/ gallbladder polyps and dominant liver lesion with multiple other lesions cystic Assessment and Plan: He is a 53-year-old male with multiple liver masses, status post liver biopsy Constipation: defer to primary Abdominal pain: Not requiring any pain medications at this time Liver masses: alpha-fetoprotein ordered, pending results from liver biopsy, further recommendations to follow, will likely get PET as outpt L5 fracture: Low threshold for bone scan/PET, not having significant pain Disposition: To home today, and we will follow-up as an outpatient as needed Thank you kindly, and please don't hesitate to call with any further questions. OBJECTIVE Vital Signs Vital Signs Date Time Temp Pulse Resp B/P (MAP) Pulse Ox O2 Delivery O2 Flow Rate FiO2 03/28/18 03:15 97.8 76 16 114/76 (89) 95 Room Air 97.8 03/27/18 23:19 98.1 69 18 130/87 (101) 97 Room Air 98.1 03/27/18 20:00 Room Air 2.0 03/27/18 19:30 98.6 80 18 130/85 (100) 97 Room Air 98.6 03/27/18 15:00 98.0 86 18 109/66 (80) 96 Room Air 98.0 03/27/18 13:30 Room Air 03/27/18 12:30 78 122/62 (82) 96 Room Air 03/27/18 12:15 74 119/58 (78) 96 Room Air 03/27/18 12:00 76 122/60 (80) 95 03/27/18 11:07 Room Air 03/27/18 11:00 98.1 74 18 120/69 (86) 96 Room Air 98.1 03/27/18 10:48 68 19 100 Nasal Cannula 2.0 03/27/18 10:44 67 14 124/72 (89) 98 Nasal Cannula 2.0 03/27/18 10:39 65 14 123/70 (87) 99 Nasal Cannula 2.0 03/27/18 10:34 66 14 122/70 (87) 100 Nasal Cannula 2.0 03/27/18 10:31 62 14 100 Nasal Cannula 2.0 03/27/18 10:30 17 I & O Intake and Output 03/28/18 07:00 Intake Total 1440 ml Balance 1440 ml Intake Oral 1440 ml # Voids 5 # Bowel Movements 1 OLGA WARD MD Mar 28, 2018 08:42
--- NOTE | 2018-03-28 09:48 | PDOC ---
G I PROGRESS NOTE Objective Already discharged. Review of Relevant I have reviewed the following items grayson (where applicable) has been applied. Labs Laboratory Tests Test 03/26/18 11:05 03/27/18 02:50 White Blood Count 6.9 x10^3/uL (4.0-11.0) 6.5 x10^3/uL (4.0-11.0) Red Blood Count 4.90 x10^6/uL (4.30-5.70) 4.68 x10^6/uL (4.30-5.70) Hemoglobin 14.2 g/dL (13.0-17.5) 13.5 g/dL (13.0-17.5) Hematocrit 41.2 % (39.0-53.0) 39.5 % (39.0-53.0) Mean Corpuscular Volume 84 fL (79-100) 84 fL (79-100) Mean Corpuscular Hemoglobin 29 pg (25-35) 29 pg (25-35) Mean Corpuscular Hemoglobin Concent 34 g/dL (31-37) 34 g/dL (31-37) Red Cell Distribution Width 13.2 % (11.5-14.5) 13.1 % (11.5-14.5) Platelet Count 271 x10^3/uL (140-400) 249 x10^3/uL (140-400) Neutrophils (%) (Auto) 70 % (31-73) 60 % (31-73) Lymphocytes (%) (Auto) 19 % (24-48) 23 % (24-48) Monocytes (%) (Auto) 8 % (0-9) 12 % (0-9) Eosinophils (%) (Auto) 2 % (0-3) 4 % (0-3) Basophils (%) (Auto) 1 % (0-3) 1 % (0-3) Neutrophils # (Auto) 4.8 x10^3uL (1.8-7.7) 3.9 x10^3uL (1.8-7.7) Lymphocytes # (Auto) 1.3 x10^3/uL (1.0-4.8) 1.5 x10^3/uL (1.0-4.8) Monocytes # (Auto) 0.6 x10^3/uL (0.0-1.1) 0.8 x10^3/uL (0.0-1.1) Eosinophils # (Auto) 0.2 x10^3/uL (0.0-0.7) 0.3 x10^3/uL (0.0-0.7) Basophils # (Auto) 0.1 x10^3/uL (0.0-0.2) 0.1 x10^3/uL (0.0-0.2) Prothrombin Time 13.9 SEC (11.7-14.0) Prothromb Time International Ratio 1.1 (0.8-1.1) Urine Collection Type Unknown Urine Color Yellow Urine Clarity Clear Urine pH 6.5 Urine Specific [place] 1.025 Urine Protein Negative mg/dL (NEG-TRACE) Urine Glucose (UA) Negative mg/dL (NEG) Urine Ketones (Stick) Negative mg/dL (NEG) Urine Blood Negative (NEG) Urine Nitrite Negative (NEG) Urine Bilirubin Negative (NEG) Urine Urobilinogen Dipstick 0.2 mg/dL (0.2 mg/dL) Urine Leukocyte Esterase Negative (NEG) Urine RBC 0 /HPF (0-2) Urine WBC Occ /HPF (0-4) Urine Squamous Epithelial Cells Few /LPF Urine Bacteria 0 /HPF (0-FEW) Sodium Level 140 mmol/L (136-145) 144 mmol/L (136-145) Potassium Level 4.0 mmol/L (3.5-5.1) 4.2 mmol/L (3.5-5.1) Chloride Level 101 mmol/L (98-107) 106 mmol/L (98-107) Carbon Dioxide Level 32 mmol/L (21-32) 30 mmol/L (21-32) Anion Gap 7 (6-14) 8 (6-14) Blood Urea Nitrogen 20 mg/dL (8-26) 13 mg/dL (8-26) Creatinine 0.9 mg/dL (0.7-1.3) 0.9 mg/dL (0.7-1.3) Estimated GFR (Cockcroft-Gault) 87.6 87.6 BUN/Creatinine Ratio 22 (6-20) Glucose Level 83 mg/dL (70-99) 90 mg/dL (70-99) Calcium Level 9.4 mg/dL (8.5-10.1) 8.4 mg/dL (8.5-10.1) Total Bilirubin 0.7 mg/dL (0.2-1.0) Aspartate Amino Transf (AST/SGOT) 38 U/L (15-37) Alanine Aminotransferase (ALT/SGPT) 44 U/L (16-63) Alkaline Phosphatase 161 U/L (46-116) Total Protein 7.8 g/dL (6.4-8.2) Albumin 3.7 g/dL (3.4-5.0) Albumin/Globulin Ratio 0.9 (1.0-1.7) Lipase 97 U/L (73-393) Tumor Marker Alpha Fetoprotein 2.6 ng/mL (0.0-8.3) Vitals/I & O Vital Sign - Last 24 Hours 03/27/18 03/27/18 03/27/18 03/27/18 10:30 10:31 10:34 10:39 Pulse 62 66 65 Resp 17 14 14 14 B/P (MAP) 122/70 (87) 123/70 (87) Pulse Ox 100 100 99 O2 Delivery Nasal Cannula Nasal Cannula Nasal Cannula O2 Flow Rate 2.0 2.0 2.0 03/27/18 03/27/18 03/27/18 03/27/18 10:44 10:48 11:00 11:07 Temp 98.1 98.1 Pulse 67 68 74 Resp 14 19 18 B/P (MAP) 124/72 (89) 120/69 (86) Pulse Ox 98 100 96 O2 Delivery Nasal Cannula Nasal Cannula Room Air Room Air O2 Flow Rate 2.0 2.0 03/27/18 03/27/18 03/27/18 03/27/18 12:00 12:15 12:30 13:30 Pulse 76 74 78 B/P (MAP) 122/60 (80) 119/58 (78) 122/62 (82) Pulse Ox 95 96 96 O2 Delivery Room Air Room Air Room Air 03/27/18 03/27/18 03/27/18 03/27/18 15:00 19:30 20:00 23:19 Temp 98.0 98.6 98.1 98.0 98.6 98.1 Pulse 86 80 69 Resp 18 18 18 B/P (MAP) 109/66 (80) 130/85 (100) 130/87 (101) Pulse Ox 96 97 97 O2 Delivery Room Air Room Air Room Air Room Air O2 Flow Rate 2.0 03/28/18 03/28/18 03/28/18 03:15 07:00 08:15 Temp 97.8 98.5 97.8 98.5 Pulse 76 78 Resp 16 16 B/P (MAP) 114/76 (89) 121/73 (89) Pulse Ox 95 100 O2 Delivery Room Air Room Air Room Air Intake and Output 03/27/18 03/27/18 03/28/18 15:00 23:00 07:00 Intake Total 480 ml 180 ml 780 ml Balance 480 ml 180 ml 780 ml Problem List Problems Medical Problems: (1) Constipation Status: Acute (2) Fracture of L5 vertebra Status: Acute Assessment Liver lesions, metastatic? Source? Abnormal GB on imaging--source? Path pending. Plan of Care Note Further w/u guided by path. BROOKS ESTRELLA MD Mar 28, 2018 09:48
--- NOTE | 2018-03-29 14:11 | PATHOLOGY ---
[facility] Accession Number: [id number] . 01 Material submitted: . LIVER MASS CORE BIOPSY . 01 Clinical history: . Hepatic mass . 02 Diagnosis: Liver tissue, liver mass CT-guided needle biopsies: - Adenocarcinoma, moderately-well differentiated. See comment. (JPM:dayanna; 03/29/2018) QMS/03/29/2018 . 02 Comment: Sections of the liver mass CT-guided needle biopsy show focal replacement of liver parenchyma by a malignant epithelial neoplasm. The malignant cells form crowded glands and are focally associated with a reactive desmoplastic stroma. The malignant cells have abundant amounts of mucinous cytoplasm which results in a goblet cell appearance. The malignant cells possess enlarged, moderately pleomorphic hyperchromatic nuclei containing prominent nucleoli. Mitotic figures are present. There are foci of acute inflammation within the uninvolved liver parenchyma. In one focus, there appears to be a portion of a cyst lined by low columnar cells having eosinophilic cytoplasm and basally situated rounded to ovoid bland appearing nuclei. A panel of immunoperoxidase stains is obtained and yields the following results: . Cytokeratin 7: Rare tumor cells positive; biliary epithelium positive. Cytokeratin 20: Tumor cells positive. CDX2: Tumor cells positive. TTF-1: Tumor cells negative. . . The morphologic and immunophenotypic findings are supportive of the diagnosis of moderately-well differentiated adenocarcinoma and are suggestive of a gastrointestinal primary including colon/rectum and pancreaticobiliary tract.Preliminary results are discussed with Dr. Taylor. The case is also examined by Dr. Nga Vallecillo, who concurs with the diagnosis. . (JPM:dayanna; 03/29/2018) . . Special stains performed: Immunoperoxidase stains for CK7, CK20, CDX2, and TTF-1. . 02 Electronically signed: . Noe Alexander MD, Pathologist NPI- [id number] . 01 Gross description: . Received in formalin labeled "Sood, Saurabh, liver mass, biopsy," are 4 distinct needle cores of joseph soft tissue ranging from 0.2 to1.0 cm in length and measuring less than 0.1 cm in diameter. The specimen is submitted entirely in cassette A1. (TSD; 03/27/2018) TOB/TOB . 02 Pathologist provided ICD-10: C22.9 . 02 CPT . 092714, S97469, T43470 Specimen Comment: A courtesy copy of this report has been sent to Specimen Comment: [phone], , . Specimen Comment: Report sent to ,DR PRIDE / DR ARZOLA Performed at: 01 [facility] [address], [place] [id number] MD Abdi Weinstein MD Phone: [phone] [facility]formed at: [facility] [address], [place] [id number] MD Noe Alexander MD Phone: [phone]
== END 2018-03-28 09:35 | disposition home or self-care (01) | DRG 442 ==
LOC: ER 10:23 → 4 NORTH 14:35
PROVIDERS: ADMIT Internal Medicine; ATTEND Internal Medicine
PROC: 0FB13ZX Excision of Right Lobe Liver, Percutaneous Approach, Diagnostic (ICD-10-PCS; principal; 2018-03-27)
DX: R16.0 Hepatomegaly, not elsewhere classified (principal); M48.56XA Collapsed vertebra, not elsewhere classified, lumbar region, initial encounter for fracture; K92.1 Melena; E78.5 Hyperlipidemia, unspecified; K59.00 Constipation, unspecified; K82.8 Other specified diseases of gallbladder; Z98.41 Cataract extraction status, right eye; Z79.899 Other long term (current) drug therapy
CPT/HCPCS: 36415; 47000; 74177; 76705; 76942; 80048; 80053; 81001; 82105; 83690; 85025; 85610; 88307; 88341; 88342; 99152; J2250; J3010; J7030; Q9967; 99285-25

== ENCOUNTER → 2018-04-05 | Outpatient (CLI) | payer BC ==
[2018-03-28 07:00] VITALS: BP 121/73
[~2018-04-05] MED LIST: DOCU-109 PO; POLY17PO3 PO
--- NOTE | 2018-04-05 15:55 | RAD ---
FDG tumor localization scan, PET/CT, 04/05/2018: History: Hepatic masses Following IV injection of 11.9 mCi of 18 F-FDG, imaging was performed from the skull base to the proximal thighs. The noncontrast CT component was performed for attenuation correction and anatomic localization purposes rather than for primary diagnosis. The patient's blood glucose level the time of injection was 78 in the/DL. Physiologic activity is present in the neck. No abnormal neck FDG uptake is seen. There is slightly increased FDG uptake at the right hilum with a maximum SUV of 3.8. Attenuation artifact related to adjacent densely calcified nodes may be contributing to this appearance. The pulmonary and mediastinal FDG uptake is otherwise unremarkable. Multiple foci of abnormal FDG uptake are evident in the liver corresponding in location to the known hepatic masses. This includes a large mass in the right lobe of the liver which measures approximately 12 cm in there is diameter. It demonstrates increased FDG uptake along its rim with decreased activity centrally suggesting tumor necrosis. The maximum SUV within this process is approximately 9-10. Multiple other smaller lesions are present in both lobes of the liver. Normal GI tract and urinary tract activity is present in the abdomen and pelvis. There is a hypermetabolic focus at the junction of the ascending colon and hepatic flexure which appears to correspond to an abnormal soft tissue density. The maximum SUV of this process is approximately 9. This soft tissue density measures approximately 3 cm. A colonic neoplasm is suspected. No other definite hypermetabolic abdominal or pelvic lesion is seen. Incidental CT findings include the presence of streaky bibasilar pulmonary opacities compatible with atelectasis and/or scarring. IMPRESSION: 1. Numerous hypermetabolic liver lesions compatible with metastatic disease. 2. Hypermetabolic colonic mass near the hepatic flexure level suggesting a primary colonic malignancy. Colonoscopic evaluation is suggested. 3. Small focus of mildly increased activity at the right hilum which may be reactive. Adenopathy on a metastatic basis cannot be excluded.
== END | disposition home or self-care (01) ==
LOC: PETSC 11:23
PROVIDERS: ATTEND Internal Medicine Hematology & Oncology
DX: C78.7 Secondary malignant neoplasm of liver and intrahepatic bile duct (principal)
CPT/HCPCS: 78815; A9552

== ENCOUNTER 2018-04-06 08:56 | Outpatient (CLI) | payer BC ==
[~2018-04-06] VITALS: Ht 180.3 cm; Wt 70.8 kg
[2018-04-06] MEDS ORDERED: ceFAZolin SODIUM 1 GM in IV DEXTROSE 5% 50 ML IV ONE (09:00)
[2018-04-06 09:15] VITALS: BP 118/82
[2018-04-06 09:29] LABS: BASO % 1 % (0-3); EOS # 0.1 x10^3/uL (0.0-0.7); EOS % 2 % (0-3); HEMOGLOBIN 13.9 g/dL (13.0-17.5); LYMPH # 1.1 x10^3/uL (1.0-4.8); LYMPH % 19 % (24-48); MEAN CORPUSCULAR HEMOGLOBIN 29 pg (25-35); MEAN CORPUSCULAR HGB CONC 34 g/dL (31-37); MEAN CORPUSCULAR VOLUME 84 fL (79-100); MONO # 0.5 x10^3/uL (0.0-1.1); MONO % 9 % (0-9); NEUT # 4.1 x10^3uL (1.8-7.7); NEUT % 70 % (31-73); PLATELET COUNT 340 x10^3/uL (140-400); RED BLOOD COUNT 4.86 x10^6/uL (4.30-5.70); RED CELL DISTRIBUTION WIDTH 12.8 % (11.5-14.5); WHITE BLOOD COUNT 5.9 x10^3/uL (4.0-11.0)
[2018-04-06] MEDS ORDERED: LIDOCAINE 1%/EPI 1:100,000 20 ML VIAL. ONE (09:43)
[2018-04-06 09:52] LABS: PROTHROMBIN TIME PATIENT 14.8 SEC (11.7-14.0)
[2018-04-06] MEDS ORDERED: MIDAZOLAM HCL/PF 5 MG/5 ML VIAL. ONE (09:52)
[2018-04-06] MEDS ORDERED: fentaNYL PF VIAL 100 MCG/2 ML VIAL ONE (09:53)
[2018-04-06] MEDS ORDERED: MIDAZOLAM HCL/PF 5 MG/5 ML VIAL. IV ONE (10:15)
[2018-04-06] MEDS ORDERED: fentaNYL PF VIAL 100 MCG/2 ML VIAL IV ONE (10:15)
[2018-04-06] MEDS ORDERED: LIDOCAINE 1%/EPI 1:100,000 20 ML VIAL. IJ ONE (10:15)
[2018-04-06 10:40] VITALS: BP 105/63
[2018-04-06 10:59] VITALS: BP 125/71
[2018-04-06 11:15] VITALS: BP 124/75
[2018-04-06 11:30] VITALS: BP 120/79
[2018-04-06 11:45] VITALS: BP 104/74
--- NOTE | 2018-04-06 14:29 | RAD ---
Procedure: Ultrasound and fluoroscopically guided placement of right internal jugular power port.. 04/06/2018 2:25 PM Clinical Indication: Chemotherapy Sedation: Conscious sedation was administered for 30 minutes. The patient was monitored by a qualified independent observer throughout the time of sedation. Please refer to the medical record for exact doses of medications utilized to achieve moderate sedation. Fluoroscopy time: 0.6 minutes Dose area product: 1Gycm2 Consent: The procedure was explained in its entirety to the patient or the patients designated district representative by a member of the treatment team, including a discussion of the risks, benefits and commonly accepted alternatives to the procedure, as well as the expected consequences of no therapy whatsoever. Discussion of the risks included, but was not limited to, those that are most frequent and those that are rare but possibly severe or life-threatening, as well as the possibility of unforeseen complications. Technique and Findings: All elements of maximal sterile barrier technique including the use of a cap, mask, sterile gown, sterile gloves, large sterile sheet, appropriate hand hygiene, and 2% chlorhexidine for cutaneous antisepsis (or acceptable alternative antiseptic per current guidelines) were followed for this procedure. Following informed consent, and a timeout procedure, the patient was prepped and draped in the usual sterile fashion. Ultrasound interrogation of the right neck revealed patency and compressibility of the right internal jugular vein. A 21-gauge micropuncture was then used to gain access to this vein under ultrasound guidance. A hard copy ultrasound image was recorded. The needle was exchanged over a wire for a sheath. A 1 inch incision was made several centimeters inferior to the venotomy site. A catheter was tunneled from this site dermatotomy site in the neck. Catheter was advanced through peel-away sheath such that its tip was in the proximal right atrium with the patient supine. The catheter was trimmed to length and connected to the port reservoir. The port was found to flush and aspirate normally. The wound was closed in layers using 4-0 Vicryl suture. Sterile dressings were applied. Impression: Successful ultrasound and fluoroscopically guided placement of a right internal jugular PowerPort
== END 2018-04-06 12:31 | disposition home or self-care (01) ==
LOC: INTRAD 08:56
PROVIDERS: ATTEND Internal Medicine Hematology & Oncology
DX: Z45.2 Encounter for adjustment and management of vascular access device (principal); C78.7 Secondary malignant neoplasm of liver and intrahepatic bile duct; Z79.01 Long term (current) use of anticoagulants; Z79.899 Other long term (current) drug therapy
CPT/HCPCS: 36415; 36561; 76937; 77001; 85025; 85610; 85730; 99152; 99153; C1788; C1892; J0690; J2250; J3010; J3490; C1751

== ENCOUNTER → 2018-05-10 | Outpatient (CLI) | payer BC ==
[~2018-05-10] MED LIST changes: +POLY17PO28 PO; -POLY17PO3 PO
--- NOTE | 2018-05-10 16:02 | RAD ---
EXAM: PA and Lateral Views of the Chest DATE: 05/10/2018 12:14 PM INDICATION: MALIGNANT NEOPLASM OF COLON COMPARISON: No Prior FINDINGS: Right Port-A-Cath tip terminates over the mid SVC. Heart is not enlarged. Aorta is mildly tortuous. Platelike opacities left lung base likely subsegmental atelectasis. No lobar consolidation. No pleural effusion or pneumothorax. IMPRESSION: 1. Platelike opacities left lung base likely subsegmental atelectasis. 2. Right Port-A-Cath tip terminates over the mid SVC. Electronically signed by: Jas Patel MD (05/10/2018 3:58 PM) [facility]
== END | disposition home or self-care (01) ==
LOC: RAD 11:57
PROVIDERS: ATTEND Nurse Practitioner Adult Health
DX: C18.9 Malignant neoplasm of colon, unspecified (principal); R05 Cough; Q25.46 Tortuous aortic arch
CPT/HCPCS: 71046

== ENCOUNTER 2018-07-19 08:47 | Outpatient (CLI) | payer BC ==
[~2018-07-19] VITALS: Ht 180.3 cm; Wt 72.1 kg
[2018-07-19 09:19] VITALS: BP 112/80
[2018-07-19 09:22] LABS: BASO % 1 % (0-3); EOS # 0.2 x10^3/uL (0.0-0.7); EOS % 2 % (0-3); HEMATOCRIT 37.6 % (39.0-53.0); HEMOGLOBIN 12.3 g/dL (13.0-17.5); LYMPH # 1.3 x10^3/uL (1.0-4.8); LYMPH % 19 % (24-48); MEAN CORPUSCULAR HEMOGLOBIN 27 pg (25-35); MEAN CORPUSCULAR HGB CONC 33 g/dL (31-37); MEAN CORPUSCULAR VOLUME 81 fL (79-100); MONO # 0.8 x10^3/uL (0.0-1.1); MONO % 12 % (0-9); NEUT # 4.7 x10^3uL (1.8-7.7); NEUT % 67 % (31-73); PLATELET COUNT 319 x10^3/uL (140-400); RED BLOOD COUNT 4.64 x10^6/uL (4.30-5.70); RED CELL DISTRIBUTION WIDTH 15.4 % (11.5-14.5); WHITE BLOOD COUNT 7.1 x10^3/uL (4.0-11.0)
[2018-07-19 09:30] LABS: PROTHROMBIN TIME PATIENT 15.6 SEC (11.7-14.0)
[2018-07-19] MEDS ORDERED: LIDOCAINE 1%/EPI 1:100,000 20 ML VIAL. ONE (10:32)
[2018-07-19] MEDS ORDERED: fentaNYL PF VIAL 100 MCG/2 ML VIAL ONE (10:37)
[2018-07-19] MEDS ORDERED: MIDAZOLAM HCL/PF 2 MG/2 ML VIAL. ONE (10:37)
[2018-07-19] MEDS ORDERED: MIDAZOLAM HCL/PF 2 MG/2 ML VIAL. IV ONE (10:45)
[2018-07-19] MEDS ORDERED: fentaNYL PF VIAL 100 MCG/2 ML VIAL IV ONE (10:45)
[2018-07-19] MEDS ORDERED: LIDOCAINE 1%/EPI 1:100,000 20 ML VIAL. IJ ONE (10:45)
[2018-07-19 11:09] VITALS: BP 116/73
[2018-07-19 11:25] VITALS: BP 126/78
[2018-07-19 11:40] VITALS: BP 124/78
[2018-07-19 11:55] VITALS: BP 114/77
--- NOTE | 2018-07-19 12:15 | NUR ---
discharge instructions reviewed with patient and family. Pt tolerated PO and ambulated without difficulty.
--- NOTE | 2018-07-19 16:29 | RAD ---
Procedure: Fluoroscopically assisted removal of a right internal jugular power port.. 07/19/2018 4:22 PM Clinical Indication: NO LONGER NEEDED Sedation: Conscious sedation was administered for 30 minutes. The patient was monitored by a qualified independent observer throughout the time of sedation. Please refer to the medical record for exact doses of medications utilized to achieve moderate sedation. Fluoroscopy time: 0.2 minutes Dose area product: 0.2 Gycm2 Consent: The procedure was explained in its entirety to the patient or the patients designated branch customer service representative by a member of the treatment team, including a discussion of the risks, benefits and commonly accepted alternatives to the procedure, as well as the expected consequences of no therapy whatsoever. Discussion of the risks included, but was not limited to, those that are most frequent and those that are rare but possibly severe or life-threatening, as well as the possibility of unforeseen complications. Technique and Findings: All elements of maximal sterile barrier technique including the use of a cap, mask, sterile gown, sterile gloves, large sterile sheet, appropriate hand hygiene, and 2% chlorhexidine for cutaneous antisepsis (or acceptable alternative antiseptic per current guidelines) were followed for this procedure. Following informed consent, and a timeout procedure, the patient was prepped and draped in the usual sterile fashion. 1% lidocaine was administered for local anesthesia. A small incision was made overlying the port reservoir. And using sharp and blunt dissection the reservoir and catheter removed intact. This was confirmed fluoroscopically. The wound was closed in layers using 4-0 Vicryl suture. Sterile dressings were applied. Impression: Removal of right internal jugular PowerPort
== END 2018-07-19 12:18 | disposition home or self-care (01) ==
LOC: INTRAD 08:47
PROVIDERS: ATTEND Internal Medicine Hematology & Oncology
DX: Z45.2 Encounter for adjustment and management of vascular access device (principal); C18.9 Malignant neoplasm of colon, unspecified; C78.7 Secondary malignant neoplasm of liver and intrahepatic bile duct; Z79.01 Long term (current) use of anticoagulants; Z79.899 Other long term (current) drug therapy
CPT/HCPCS: 36415; 36590; 77001; 85025; 85610; 99152; 99153; J2250; J3010; J3490